=== PATIENT | female | born 1970 | race Caucasian/White ===

== ENCOUNTER → 2016-11-11 | Day surgery (SDC) | payer OTHER ==
[~2016-11-11] MED LIST: ALBUTEROL17 GM INH; AUGMENTIN PO; BENTYL20 M1 PO; CARAFATE1 GM PO; NASONEX17 GM; NO MEDICATIONS; PANTOPRAZOLE SO40 MG; PHENERGAN25 M1 PO; PHENERGAN25 MG PO; PREDNISONE PO; PRILOSEC PO; PROTONIX PO; RANITIDINE HCL300 M1; RANITIDINE HCL300 M1 PO; VIBRAMYCIN100 M1 PO; ZANTAC150 M1 PO; ZOFRAN
--- NOTE | ~2016-11-11 | OR ---
Unit #: [id number] #: [id number] Patient: CHERYL BLOOM [id number] [address] [place], [place] [address] [id number] MR#: [id number] NAME: CHERYL BLOOM ROOM: Date of Procedure: 11/11/2016 Admission Date: 11/11/2016 Surgeon: Yimi Dawkins M.D. : 1970 Attending Physician: Yimi Dawkins M.D. Primary Care Physician: Ildefonso Lima M.D. OPERATIVE REPORT PREOPERATIVE DIAGNOSES Retrosternal ascending heartburn, postprandial dyspepsia, and gastroesophageal reflux. PROCEDURES PERFORMED Upper gastrointestinal endoscopy and biopsy. POSTOPERATIVE DIAGNOSES The patient had moderate prepyloric antral gastritis, otherwise normal examination up to third part of the duodenum. The biopsies obtained from the antrum for CLOtest. In addition, biopsies also obtained of the deep descending duodenal folds and sent for histology. RECOMMENDATIONS The patient is advised to use omeprazole or pantoprazole 40 mg p.o. b.i.d. She will be followed up in the office in 8 to 10 weeks' time. SEDATION USED MAC. DESCRIPTION OF PROCEDURE Following detailed explanation of potential risks and complications of an upper endoscopy, namely perforation, bleeding, and complications related to sedation, the patient was brought to GI lab and laid in the left lateral decubitus position. Lubricated tip of the Olympus video upper endoscope was passed through bite block into the proximal esophagus under direct vision. The entire esophageal mucosa was examined and appeared normal. Z-line was nicely demarcated, there being no esophagitis or hiatus hernia. The scope was then advanced into the gastric cavity and the latter was insufflated. Mucosa of the fundus, body, and antrum examined. The patient was noted to have moderate prepyloric antral erosive gastritis. Pylorus was intubated with visualization of the normal duodenal bulb and second and third part of the duodenum. Biopsies obtained from the deep descending duodenal folds to look for any evidence of partial villous atrophy. The scope was then withdrawn in the antrum and retroverted, whereupon incisura, cardia, and greater curve examined and biopsy obtained from the antrum for CLOtest. The scope was withdrawn in the distal esophagus. Entire esophageal mucosa was examined all the way up to pharynx. No additional findings noted. The patient tolerated the procedure without any postprocedure complications. Unit #: [id number] #: [id number] Patient: CHERYL BLOOM Dictated by... Hedy Villasenor/vale TD: 11/12/2016 00:13 JOB #: [id number] CC: Ildefonso Lima M.D. OPERATIVE REPORT X Yimi Dawkins MD X PROCEDURE OPERATIVE NOTE
== END | disposition home or self-care (01) ==
LOC: COPS 09:46
DX: K21.9 Gastro-esophageal reflux disease without esophagitis (principal); K29.50 Unspecified chronic gastritis without bleeding; F17.210 Nicotine dependence, cigarettes, uncomplicated; Z79.899 Other long term (current) drug therapy; Z90.49 Acquired absence of other specified parts of digestive tract
CPT/HCPCS: 84703; 87077

== ENCOUNTER 2017-04-28 17:21 | Emergency (ER) | payer OTHER ==
--- NOTE | ~2017-04-28 | CR63 ---
[facility]. [facility] A Service of [facility] & [facility] RADIOLOGY TEXT RESULTS PATIENT: CHERYL BLOOM LOCATION: SED : 70 UNIT #: [id number] AGE: [address]: Reji Castro SEX: F ORDER DR: [id number] [place] [id number] E MR#: [id number] Acc #: [id number] NAME: CHERYL BLOOM. : 1970 SEX: F STUDY DATE/TIME: 04/28/2017 19:49 UNIT: SED ROOM: STUDY DESCRIPTION: CR Chest 2 View Attending Physician: Reji Castro P.A.-C. Ordering Physician: Reji Castro P.A.-C. Primary Care Physician: Ildefonso Lima M.D. MEDICAL IMAGING REPORT This report is preliminary unless electronic signature is present. EXAM Chest PA and lateral, 04/28/2017 HISTORY Fever, upper chest pain and shortness of breath with headache and bilateral shoulder pain and neck pain for 1 week. FINDINGS The heart is normal in size. There is discoid atelectasis or linear fibrosis at the left lung base. Poor inspiratory result with atelectasis or infiltrate right lower lobe. The upper lungs are clear. No pneumothorax. IMPRESSION Poor inspiratory result with infiltrate or atelectasis in the right lower lobe. 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 Dictated by... Burak Renteria M.D. THIS IS AN ELECTRONICALLY VERIFIED REPORT Burak Renteria M.D. at 04/29/2017 2:14 PM KRT/psc TD: 04/29/2017 00:47 JOB #: [id number] MEDICAL IMAGING REPORT Page 1 of 1
[2017-04-28 19:38] LABS: URINE SOURCE CLEAN CATCH
[2017-04-28 19:41] LABS: URINE APPEARANCE CLEAR; URINE BILIRUBIN NEG (NEG); URINE BLOOD NEG (NEG); URINE COLOR YELLOW; URINE GLUCOSE NEG (NORM); URINE KETONE NEG (NEG); URINE LEUKOCYTE ESTERASE NEG (NEG); URINE NITRATE NEG (NEG); URINE PROTEIN NEG (NEG); URINE UROBILINOGEN 0.2 MG/DL (NORM)
[2017-04-28 19:44] LABS: MICRO INDICATED? NO
[2017-04-28 19:45] LABS: BASOPHIL# 0.1 X10e3 (0-0.3); BASOPHIL% 0.8 % (0-2.5); EOSINOPHIL# 0.3 X10e3 (0-0.7); EOSINOPHIL% 2.3 % (0.0-7.0); HEMATOCRIT 42.8 % (35.0-45.0); HEMOGLOBIN 13.9 gm/dL (12.0-16.0); LYMPHOCYTE# 1.5 X10e3 (1.0-3.5); LYMPHOCYTE% 13.2 % (17.0-45.0); MEAN CELL VOLUME 81.8 FL (83-96); MEAN CORPUSCULAR HEMOGLOBIN 26.5 PG (28-34); MEAN CORPUSCULAR HGB CONC 32.5 g/dL (30-36); MEAN PLATELET VOLUME 7.8 FL (6.5-11.5); MONOCYTE# 0.6 X10e3 (0-1.0); MONOCYTE% 5.3 % (3.0-12.0); NEUTROPHIL# 8.8 X10e3 (1.5-7.1); NEUTROPHIL% 78.4 % (40-75); PLATELET COUNT 356 X10e3 (140-420); RED BLOOD COUNT 5.24 X10e (3.90-5.30); RED CELL DISTRIBUTION WIDTH 17.6 % (11.0-15.5); WHITE BLOOD COUNT 11.2 X10e3 (4.0-10.5)
[2017-04-28 19:47] LABS: DIFF IND NO
== END 2017-04-28 21:20 | disposition home or self-care (01) ==
LOC: SED 17:21
PROVIDERS: Physician Assistant
DX: J18.9 Pneumonia, unspecified organism (principal); Z79.899 Other long term (current) drug therapy
CPT/HCPCS: 36415; 71020; 81003; 85025; 87040; 96361; 96374; 99284; J1885